=== PATIENT | male | born 1995 | race Hispanic/Latino ===

== ENCOUNTER 2019-12-08 12:41 | Emergency (ER) | payer OTHER ==
[2019-12-09 16:29] LABS: SARS-CoV-2 MS2 Positive; SARS-CoV-2 N Gene Negative; SARS-CoV-2 S Gene Negative; SARS-CoV-2 orf1ab Negative
== END 2019-12-08 13:24 | disposition home or self-care (01) ==
LOC: ERS 12:41
DX: Z20.828 Contact with and (suspected) exposure to other viral communicable diseases (principal); F17.200 Nicotine dependence, unspecified, uncomplicated
CPT/HCPCS: 87635; 99283; U0003